=== PATIENT | male | born 1965 | race Caucasian/White ===

== ENCOUNTER 2024-10-31 10:05 | Outpatient (AMB) | payer MEDICARE, MEDICAID, SELFPAY ==
--- NOTE | 2024-10-31 10:11 | MHC.PC.OV ---
Vital Signs 10/31/24 10:21 Height 5 ft 6.54 in Weight 141 lb 8 oz BMI 22.5 BP 138/88 Blood Pressure Location Lt brachial Position Sitting Pulse 96 Pulse Source Pulse Oximeter Temp 97.1 F Temp Source Temporal Artery Scan Pulse Oximetry (%) 97 Oxygen Delivery Method Room Air Intake Visit Reasons: New patient Intake Note: Patient is a new patient here to establish care for HTN, DM, Cholestrol. Transferring care from Dr Ezekiel England. Medical records Have been requested and Have not received. Child Daycare Worker Required: No Maintenance Controller: Not Required per policy Accompanied by: Self / Same As Patient Allergies lisinopril Adverse Reaction (Unknown, Verified 11/01/24 08:23) Cough Medication List - Last Reconciled 11/01/24 by JONATHON Hernandez albuterol sulfate 90 mcg/actuation 2 puffs inhalation Q4-6H PRN atorvastatin 10 mg PO DAILY chlorthalidone 25 mg PO DAILY empagliflozin-metformin 12.5-1,000 mg (Synjardy) 1 tab PO BID losartan 25 mg PO DAILY meloxicam 15 mg PO DAILY metoprolol succinate ER 25 mg PO DAILY tadalafil (Cialis) 20 mg PO DAILY PRN Tobacco use date assessed: 10/31/24 Dental Screening Dental Screen Date: 10/31/24 Did you have a dental visit in the last 12 months?: Yes Did you have a dental problem in the last 6 months where you did not have access to dental care?: No Was dental information given to patient?: Patient has dentist HPI New patient HPI Details Previous PCP: In [place] Last visit: Last PE: February 2024 Specialist: electrician sound (everything was normal- report he was feeling heart palpitations). OBGYN: n/a Past medical history: DM, HTN, Medications: Family HX:father dm, mother arthritis, Problem: Reports that he does not take his blood medication every day, but he monitors his blood pressure frequently last reading 127/73 81 The patient reports that he has arthritis in both shoulders. He had surgery in right shoulder 2015 in [place] reports that he had blood work done 6 months The patient is a 58-year-old male who was [facility] Reports that he used to live here in [place] but moved back to [place] to take care of his mom and dad Reports that they both so now [place] the states and need to reestablish care The patient reports that he gets intermittent shortness of breath that is random Reports that he gets it sometimes with exertion and sometime just sitting there He denies chest pain or dizziness. Reports that he is not sure if it is due to abuse on his body because he used to smoke for many years Reports that he quit smoking 20 years ago. 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 The patient is requesting Cialis 20 mg, reports that he took Viagra before and that gave him headache but the Cialis 20 mg work well for him Patient reports bilateral shoulder arthritis. Reports that he had surgery on the right shoulder in [place] before going to [place] Reports that every once in a while his left shoulder becomes stiff and painful and he has to use his right arm to mobilize it Reports that he has a physical around February or March last year in [place] We will order labs and have the patient return in a month for follow-up for hypertension and diabetes The patient reports that he sees the dentist at [facility] in [place] and he also had a recent eye exam [facility] Medical History Arthritis HTN (hypertension) Diabetes mellitus Smoking history Surgical History History of arthroplasty of right shoulder Family History (Updated 11/01/24 @ 21:40 by JONATHON Hernandez) Father No problems noted. Mother Arthritis Other Diabetes mellitus Social History Housing: Apartment Alcohol intake: never Patient Tobacco Use Status: Former Tobacco user e-Cigarette/Vaping Use: Never Used Second Hand Smoke Exposure: Yes service: No Current occupational status: retired Cognitive needs: No Hearing needs: No Vision needs: Yes (Glasses) Questionnaire PHQ-9 Over the last 2 weeks, how often have you been bothered by any of the following problems? 1. Little interest or pleasure in doing things: not at all 2. Feeling down, depressed, or hopeless: not at all 3. Trouble falling or staying asleep, or sleeping too much: not at all 4. Feeling tired or having little energy: not at all 5. Poor appetite or overeating: not at all 6. Feeling bad about yourself - or that you are a failure or have let yourself or your family down: not at all 7. Trouble concentrating on things, such as reading the newspaper or watching television: not at all 8. Moving or speaking so slowly that other people could have noticed. Or the opposite - being so fidgety or restless that you have been moving around a lot more than usual: not at all 9. Thoughts that you would be better off or of hurting yourself in some way: not at all Total score: 0 Depression Screening Interpretation: Negative Depression Screening Done: Yes 76402 - PHQ-9 Billing: Yes Source: Developed by Drs. Hardik Epps, Caryn Pham, Raghu Fung and colleagues, with an educational moustapha from [employer]. Thrive Questionnaire Date Thrive assessed: 10/31/24 I am a: Patient What is your living situation today?: I have a steady place to live Within the past 12 months, did the food you bought not last and you didn't have the money to get more?: Never true Within the past 12 months, did you worry whether your food would run out before you got money to buy more?: Never true Do you have trouble paying for medicines?: No Do you have trouble getting transportation to medical appointments?: No Do you have trouble paying your heating and electricity bill?: No Do you have trouble taking care of your child, family member or friend?: No Do you have trouble with day-to-day activities such as bathing, preparing meals, shopping, managing finances, etc.?: No Are you currently unemployed and looking for a job?: No Are you interested in more education?: No Please select the resources that you would like help with: None Currently or been in a relationship where the following occur: No concerns reported THRIVE Score: 0 AUDIT C Alcohol Use Questionnaire (AUDIT-C) 1. How often do you have a drink containing alcohol?: Never Total Score: 0 ISAIAH-7 AMB Questionnaire ISAIAH-7 Date ISAIAH - 7 assessed: 10/31/24 Feeling nervous, anxious, or on edge: 0 = Not at all Not being able to stop or control worryin = Not at all Worrying too much about different things: 0 = Not at all Trouble relaxin = Not at all Being so restless that it is hard to sit still: 0 = Not at all Becoming easily annoyed or irritable: 0 = Not at all Feeling afraid as if something awful might happen: 0 = Not at all Total ISAIAH-7 score (0-4 normal; 5-9 mild; 10-14 moderate; 15-21 severe): 0 Source: Developed by Drs. Hardik Epps, Caryn Pham, Raghu Fung and colleagues, with an educational moustapha from [employer]. ISAIAH-7 Assessment Billing ISAIAH-7 Assessment Tool: ISAIAH-7 Assessment 71845 Review of Systems Const Details: Denies chills, Denies fatigue, Denies fever(s), Denies headache(s) and Denies weakness HEENT Denies change in vision, Denies dizziness, Denies headache(s), Denies hearing loss, Denies nasal congestion, Denies sinus pain, Denies sinus pressure and Denies sore throat Card Denies chest pain, Denies lightheadedness, +intermittent sob without or with exertion and Denies other (palpitations) Resp Denies cough, +intermittent sob without or with exertion, and Denies wheezing GI Denies abdominal pain, Denies melena, Denies hematochezia, Denies change in bowel habits, +dyspepsia intermittently only with hot coffee and Denies nausea Denies hematuria and Denies dysuria Musc Denies abnormal gait, Denies myalgias, +arthralgias (left shoulder chronic), Denies numbness and Denies tingling Skin/Breast Denies rash, Denies unusual bruising and Denies wounds Neuro Denies abnormal gait, Denies dizziness, Denies headache(s), Denies memory loss, Denies numbness, Denies Sensory deficit (Neuro), Denies tingling and Denies weakness Psych Denies anxiety, Denies depression and Denies memory loss Endo Denies cold intolerance, Denies fatigue, Denies heat intolerance, Denies polydipsia and Denies polyuria Bhupinder/Lymph Denies easy bleeding and Denies easy bruising Aller/Immun Denies wheezing Physical exam (Primary Care) Vital Signs: Last Vital Signs Temp 97.1 F 10/31/24 10:21 Pulse 96 10/31/24 10:21 BP 138/88 10/31/24 10:21 Pulse Ox 97 10/31/24 10:21 Oxygen Delivery Method Room Air 10/31/24 10:21 BMI result Body Mass Index 22.5 Tobacco/Smoking Status: Tobacco use Status Tobacco use date assessed 10/31/24 10/31/24 10:13 Patient Tobacco Use Status Former Tobacco user 10/31/24 10:36 e-Cigarette/Vaping Use Never Used 10/31/24 10:13 PHQ-9: PHQ-9 Score PHQ-9: Total score 0 11/01/24 08:25 Depression Screening Interpretation: Negative Thrive Assessment: Date of Thrive Assessment Date Thrive assessed 10/31/24 10/31/24 10:13 Currently or been in a relationship where the following occur: No concerns reported Const Other: General: no acute distress, well developed, alert and awake Nutritional Appearance: well nourished Orientation/consciousness: patient oriented x3 HENMT Head: Yes normocephalic and Yes atraumatic Ears: hearing grossly normal bilaterally and TM's normal bilaterally General nose exam: Normal external nose present and Normal nares present Mouth: Normal oral and palatal mucosa present and moist mucous membranes Eyes Pupils: Equal, round and reactive pupils present and Pupil accommodation reflex normal EOM: EOMs intact bilaterally Neck Neck: Yes normal visual inspection, Yes no lymphadenopathy and Yes trachea midline Thyroid: Thyroid normal Resp Effort & Inspection: normal respiratory effort Auscultation: clear to auscultation bilaterally Cardio Rate: regular rate Rhythm: regular rhythm Heart sounds: S1 normal heart sound present, S2 normal heart sound present, no gallops, no murmurs and no rubs GI Palpation (GI): Abdomen is soft and nontender to palpation Auscultation: normal bowel sounds General: Yes no CVA tenderness Back/Spine/Pelvis Back: no CVA tenderness Cervical Spine: cervical ROM normal and No Cervical spine tenderness Thoracic/Lumbar Spine: No lumbar tenderness with palpation Other: Left shoulder positive range of motion with pain, no erythema no edema Skin General: warm and dry. Normal skin color. Normal skin turgor Other: left shoulder skin color, skin tag Nails: normal Neuro General: patient oriented x3, gait normal Cranial nerves: Yes Equal, round and reactive pupils present Cognition (Neuro): normal cognition Gait exam (Neuro): Normal gait present Extrem General: Yes normal to inspection, No edema and No calf tenderness Psych Appearance: grossly normal Affect: normal affect Attitude: cooperative Thought process: Normal thought process present Coding Level of Care Code New Pt Level 4 (51362) Diagnoses Type 2 diabetes mellitus with other specified complication, without long-term current use of insulin E11.69 Diabetes mellitus type: type 2 Diabetes mellitus skilled nursing insulin use: without skilled nursing use Diabetes mellitus complication status: with other specified complication Hypertension, unspecified type I10 Hypertension type: unspecified SOB (shortness of breath) R06.02 Skin tag L91.8 Erectile dysfunction, unspecified erectile dysfunction type N52.9 Erectile dysfunction type: unspecified Chronic left shoulder pain M25.512; G89.29 Chronicity: chronic Additional Codes PHQ-9 - 49889 - PHQ-9 Billing: Yes ([id number]) ISAIAH-7 Assessment Billing - ISAIAH-7 Assessment Tool: ISAIAH-7 Assessment 25348 ([id number]) Time Spent (min) 38 Assessment & Plan Assessment & Plan (1) Diabetes mellitus: Code(s): E11.9 - Type 2 diabetes mellitus without complications Category: Medical Qualifiers: Diabetes mellitus type: type 2 Diabetes mellitus skilled nursing insulin use: without watermelon harvesting supervisor use Diabetes mellitus complication status: with other specified complication Qualified Code(s): E11.69 - Type 2 diabetes mellitus with other specified complication Plan: Reinforced lowest sugar/carbohydrate and activity as tolerated Continue Synjardy 12.5-1000 mg b.i.d. Monitor blood sugar frequently (2) HTN (hypertension): Code(s): I10 - Essential (primary) hypertension Category: Medical Qualifiers: Hypertension type: unspecified Qualified Code(s): I10 - Essential (primary) hypertension Plan: Reinforced low-sodium diet Continue chlorthalidone 25 mg daily, losartan 25 mg daily, metoprolol succinate ER 25 mg daily (3) SOB (shortness of breath): Code(s): R06.02 - Shortness of breath Category: Medical Plan: Albuterol sulfate 90 mcg/actuation 2 puffs inhalation Q 4-6 hours p.r.n. (4) Skin tag: Code(s): L91.8 - Other hypertrophic disorders of the skin Category: Medical Plan: Refer to dermatology (5) Erectile dysfunction: Code(s): N52.9 - Male erectile dysfunction, unspecified Category: Medical Qualifiers: Erectile dysfunction type: unspecified Qualified Code(s): N52.9 - Male erectile dysfunction, unspecified Plan: Cialis 20 mg daily p.r.n. (6) Left shoulder pain: Code(s): M25.512 - Pain in left shoulder Category: Medical Qualifiers: Chronicity: chronic Qualified Code(s): M25.512 - Pain in left shoulder; G89.29 - Other chronic pain Plan: Patient reports bilateral shoulder arthritis. Reports that he had surgery on the right shoulder in [place] before going to [place] Meloxicam 15 mg daily ordered Orders: Orders Complete Blood Count Auto Diff Today E11.9 - Type 2 diabetes mellitus without complications, I10 - Essential (primary) hypertension, R06.02 - Shortness of breath Comprehensive [place]. Panel Fast Today E11.9 - Type 2 diabetes mellitus without complications, I10 - Essential (primary) hypertension, R06.02 - Shortness of breath Lipid Panel Today E11.9 - Type 2 diabetes mellitus without complications, I10 - Essential (primary) hypertension, R06.02 - Shortness of breath Glucose Fasting Today E11.9 - Type 2 diabetes mellitus without complications, I10 - Essential (primary) hypertension, R06.02 - Shortness of breath Vitamin D 25-OH Total Today E11.9 - Type 2 diabetes mellitus without complications, I10 - Essential (primary) hypertension, R06.02 - Shortness of breath TSH reflex Free T4 Today E11.9 - Type 2 diabetes mellitus without complications, I10 - Essential (primary) hypertension, R06.02 - Shortness of breath Hemoglobin A1c Today E11.9 - Type 2 diabetes mellitus without complications, I10 - Essential (primary) hypertension, R06.02 - Shortness of breath UA CC w/rflx Micro + Cult Today E11.9 - Type 2 diabetes mellitus without complications, I10 - Essential (primary) hypertension, R06.02 - Shortness of breath Referrals Pulmonology Referral R06.02 - Shortness of breath, Z87.891 - Personal history of nicotine dependence Dermatology Referral L91.8 - Other hypertrophic disorders of the skin Medications: New blood-glucose meter ([employer] Verio Flex Start kit) As directed check blood sugar TID 1 ea 1RF E11.69 - Type 2 diabetes mellitus with other specified complication lancets (OneTouch UltraSoft 2 Lancet) As directed check blood sugar TID 200 ea 2RF E11.69 - Type 2 diabetes mellitus with other specified complication blood sugar diagnostic (OneTouch Ultra Test strips) As directed check blood sugar TID 100 ea 2RF E11.69 - Type 2 diabetes mellitus with other specified complication meloxicam 15 mg PO DAILY 30 tabs 3RF albuterol sulfate 90 mcg/actuation 2 puffs inhalation Q4-6H PRN 8.5 grams 0RF shortness of breath or wheezing R06.02 - Shortness of breath tadalafil (Cialis) administer approximately 30min before sexual activity; do not use more than 1 dose per 24hrs 20 mg PO DAILY PRN 30 tabs 1RF sexual activity
[2024-10-31 10:21] VITALS: BP 138/88; PULSE 96; TEMP 36.2; O2SAT 97; BMI 22.5
== END 2024-10-31 11:15 | disposition home or self-care (01) ==
PROVIDERS: PCP Internal Medicine
DX: E11.69 Type 2 diabetes mellitus with other specified complication (principal); I10 Essential (primary) hypertension; R06.02 Shortness of breath; L91.8 Other hypertrophic disorders of the skin; N52.9 Male erectile dysfunction, unspecified; M25.512 Pain in left shoulder; G89.29 Other chronic pain

== ENCOUNTER → 2024-10-31 10:05 | Outpatient (BNVA) | payer MEDICARE, MEDICAID, SELFPAY | PROVIDERS: PCP Internal Medicine | DX: E11.69 Type 2 diabetes mellitus with other specified complication (principal); I10 Essential (primary) hypertension; R06.02 Shortness of breath; L91.8 Other hypertrophic disorders of the skin; N52.9 Male erectile dysfunction, unspecified; M25.512 Pain in left shoulder; G89.29 Other chronic pain | CPT/HCPCS: 96127; 99202 ==

== ENCOUNTER 2024-11-01 07:09 | Outpatient (REF) | payer MEDICARE, MEDICAID, SELFPAY ==
[2024-11-01 07:19] LABS: MANUAL DIFF FLAG NO
[2024-11-01 07:47] LABS: Basophils Absolute Auto 0.1 X10*3/uL (0.0-0.2); Basophils Percent Auto 0.8 % (0-2); Eosinophils Absolute Auto 0.3 X10*3/uL (0.0-0.4); Eosinophils Percent Auto 4.4 % (0-4); Hematocrit 47.1 % (42.0-52.0); Hemoglobin 15.6 g/dl (14.0-18.0); Imm Gran Abs Auto 0.03 X10*3/uL (0.00-0.03); Imm Gran Pct Auto 0.4 % (0.0-0.4); Lymphocytes Percent Auto 26.4 % (20-40); Mean Corpuscular HGB Conc 33.1 g/dl (31.0-36.0); Mean Corpuscular Hemoglobin 27.7 pg (27.0-33.0); Mean Corpuscular Volume 83.7 fL (80.0-98.0); Mean Platelet Volume 9.8 fL (9.4-12.4); Monocytes Absolute Auto 0.5 X10*3/uL (0.1-1.2); Monocytes Percent Auto 7.2 % (2-11); Neutrophils Absolute Auto 4.6 x10*3/uL (2.0-8.3); Neutrophils Percent Auto 60.8 % (45-73); Platelet Count 201 X10*3/uL (160-400); Red Blood Count 5.63 X10*6/uL (4.60-5.80); Red Cell Distribution Width 13.7 % (11.0-16.0); White Blood Count 7.5 X10*3/uL (4.8-10.8)
[2024-11-01 08:12] LABS: Estimated Average Glucose 146 mg/dL; Hemoglobin A1C 202.7293 umol/L; Hemoglobin A1c % 6.7 % (<6.0); Total Hemoglobin (HGBA1C) 4044.0666 umol/L
[2024-11-01 08:13] LABS: Appearance Urine Clear; Color Urine Yellow; Glucose Urine UA >=1000 mg/dL (Negative); Leukocyte Esterase Urine Negative (Negative); Nitrite Urine Negative (Negative); PH 5.5 (5.0-9.0); Specific Gravity - Urine >= 1.030 (1.005-1.025); UMIC TRIGGER UACC YES; Urine Blood Moderate (2+) (Negative); Urine Ketones Negative (Negative); Urine Protein Negative (Neg-Trace)
[2024-11-01 08:18] LABS: Bacteria Urine None Seen (None Seen); Hyaline Casts Urine 0-2 /LPF (0-2); RBC Urine 0-2 /HPF (0-2); Squamous Epithelial Cell Urine 0-2 /HPF (0-2); WBC Urine 0-5 /HPF (0-5)
[2024-11-01 08:24] LABS: Alanine Aminotransferase 23 U/L (0-40); Albumin Level 4.6 g/dL (3.5-5.0); Alkaline Phosphatase 92 U/L (39-117); Anion Gap 13 (12-20); Aspartate Amino Transferase 23 U/L (5-37); Bilirubin Total 0.4 mg/dL (0.0-1.0); Blood Urea Nitrogen 22 mg/dL (9-16); Calcium 9.3 mg/dL (8.4-10.2); Carbon Dioxide 24 mmol/L (22-29); Chloride 108 mmol/L (96-108); Cholesterol 100 mg/dL (<200); Estimated Glomerular Filt Rate > 60; Glucose Fasting 137 mg/dL (60-99); HDL Cholesterol 34 mg/dL (>40); LDL Cholesterol Calculated 55 mg/dL (<100); Potassium 4.1 mmol/L (3.3-5.1); Sodium 141 mmol/L (135-145); Total Protein 7.7 g/dL (6.5-8.0); Triglycerides 58 mg/dL (<150)
[2024-11-01 08:42] LABS: TSH reflex Free T4 0.97 uIU/mL (0.32-4.0); Vitamin D 25-OH Total 37.1 ng/mL (>30)
== END 2024-11-01 07:10 | disposition home or self-care (01) ==
LOC: HO.LAB 07:09
DX: I10 Essential (primary) hypertension (principal); E11.9 Type 2 diabetes mellitus without complications; R06.02 Shortness of breath
CPT/HCPCS: 36415; 80053; 80061; 81001; 81003; 82306; 83036; 84443; 85025

== ENCOUNTER 2024-11-04 07:40 | Outpatient (REF) | payer MEDICARE, MEDICAID, SELFPAY ==
[2024-11-04 08:04] LABS: Urine Cytology See Pathology rpt
[2024-11-04 08:07] LABS: Appearance Urine Clear; Color Urine Yellow; Glucose Urine UA >=1000 mg/dL (Negative); Leukocyte Esterase Urine Negative (Negative); Nitrite Urine Negative (Negative); Specific Gravity - Urine >= 1.030 (1.005-1.025); UMIC TRIGGER UACC YES; Urine Blood Small (1+) (Negative); Urine Ketones Negative (Negative); Urine Protein Negative (Neg-Trace)
[2024-11-04 08:15] LABS: Bacteria Urine None Seen (None Seen); Hyaline Casts Urine 0-2 /LPF (0-2); RBC Urine 0-2 /HPF (0-2); Squamous Epithelial Cell Urine 0-2 /HPF (0-2); WBC Urine 0-5 /HPF (0-5)
== END 2024-11-04 07:41 | disposition home or self-care (01) ==
LOC: HO.LAB 07:40
PROVIDERS: PCP Internal Medicine
DX: R31.9 Hematuria, unspecified (principal)
CPT/HCPCS: 81001; 88112

== ENCOUNTER 2024-11-11 14:31 | Outpatient (AMB) | payer MEDICARE, MEDICAID, SELFPAY ==
[2024-11-11 15:10] VITALS: BP 132/70; PULSE 80; O2SAT 97; BMI 22.9
--- NOTE | 2024-11-11 15:10 | A.OFFVIS_ITS ---
Vital Signs 11/11/24 15:10 Height 5 ft 7 in Weight 146 lb BMI 22.9 BP 132/70 Blood Pressure Location Lt brachial Position Sitting Pulse 80 Pulse Source Pulse Oximeter Pulse Oximetry (%) 97 Oxygen Delivery Method Room Air Intake Visit Reasons: shortness of breath Graphic Arts Instructor Required: No Conveyor Console Operator: Conveyor Console Operator offered & declined Accompanied by: Self / Same As Patient Allergies lisinopril Adverse Reaction (Unknown, Verified 11/11/24 15:17) Cough Medication List - Last Reconciled 11/11/24 by Minerva Grimes LPN albuterol sulfate 90 mcg/actuation 2 puffs inhalation Q4-6H PRN atorvastatin 10 mg PO DAILY [Blood pressure monitor As directed] blood sugar diagnostic ([employer] Ultra Test strips) As directed check blood sugar once a day blood-glucose meter ([employer] Verio Flex Start kit) As directed check blood sugar once chlorthalidone 25 mg PO DAILY empagliflozin-metformin 12.5-1,000 mg (Synjardy) 1 tab PO BID lancets ([employer] UltraSoft 2 Lancet) As directed check blood sugar once a day losartan 25 mg PO DAILY meloxicam 15 mg PO DAILY metoprolol succinate ER 25 mg PO DAILY tadalafil (Cialis) 20 mg PO DAILY PRN HPI HPI shortness of breath: Details: Paras is a pleasant 59 year old male, former smoker, quit 21 years ago with 30+ pyh, with underlying HTN and DMII. He was referred by PCP for pulmonary evaluation. He reports occasional dyspnea on exertion with associated chest tightness, wheezing and dry cough. He has an albuterol MDI however uses infrequently as he feels suboptimal relief and questions proper use. He denies h/o asthma. He denies seasonal allergies. He reports two sisters with asthma. 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 ON LICENSE OF [facility] Medical History Arthritis HTN (hypertension) Diabetes mellitus Smoking history Surgical History History of arthroplasty of right shoulder Family History (Updated 11/01/24 @ 21:40 by JONATHON Hernandez) Father No problems noted. Mother Arthritis Other Diabetes mellitus Social History Housing: Apartment Alcohol intake: never Patient Tobacco Use Status: Former Tobacco user e-Cigarette/Vaping Use: Never Used Second Hand Smoke Exposure: Yes service: No Current occupational status: retired Cognitive needs: No Hearing needs: No Vision needs: Yes (Glasses) Review of Systems Const Denies chills, Denies excessive sweating, Denies fever(s), Denies headache(s) and Denies night sweats Eyes Denies dry eyes, Denies irritation and Denies itchy eyes ENT Reports Normal hearing present, Denies headache(s), Denies nasal congestion, Denies nasal discharge, Denies post nasal drip and Denies sore throat Card Denies chest pain, Denies chest pain at rest, Denies chest pain with activity, Denies claudication, Denies leg edema, Denies orthopnea and Denies paroxysmal nocturnal dyspnea Resp Denies chest congestion, Denies excessive phlegm production, Denies pain on inspiration, Denies pain with cough and Denies stridor Musc Denies myalgias Neuro Reports Normal hearing present and Denies headache(s) Endo Denies excessive sweating Bhupinder/Lymph Denies lymphadenopathy Aller/Immun Denies itchy eyes and Denies seasonal rhinorrhea Physical Exam Vital Signs: Last Vital Signs Pulse 80 11/11/24 15:10 BP 132/70 11/11/24 15:10 Pulse Ox 97 11/11/24 15:10 Oxygen Delivery Method Room Air 11/11/24 15:10 BMI result Body Mass Index 22.9 Const General: cooperative, healthy appearing, comfortable, no acute distress, well developed and alert Orientation/consciousness: patient oriented x3 Limitations: no limitations HEENT Head: Yes normal to inspection, Yes normocephalic and Yes atraumatic Ears: hearing grossly normal bilaterally and external ears normal Eyes General: appearance normal, both eyes and all related structures Eyelids: Yes eyelids normal Sclerae: sclerae normal EOM: EOMs intact bilaterally Neck Neck: Yes normal visual inspection and Yes no lymphadenopathy Lymphatic: no lymphadenopathy noted Chest Chest palpation & inspection: normal inspection of the chest Resp Effort & Inspection: normal respiratory effort, able to speak in complete sentences, no audible wheezes, no cough, no stridor, not tachypneic, no tripod positioning and no use of accessory muscles Auscultation: clear to auscultation bilaterally Cardio Jugular venous distension: no JVD Rate: regular rate Rhythm: regular rhythm Skin Other: warm, dry General skin exam: no rashes or lesions noted Neuro General: patient oriented x3 Cranial nerves: Yes Normal hearing present Cognition (Neuro): normal cognition Gait exam (Neuro): Normal gait present Extrem General: Yes normal to inspection, Yes capillary refill normal, Yes no clubbing, cyanosis or edema and Yes no pedal edema Psych Appearance: grossly normal and well kempt Speech and movement: Normal speech and movement present and Clear speech present Affect: normal affect Attitude: cooperative Thought process: Normal thought process present Thought content: Normal thought content present Insight: Good insight present (Psych) Judgement: Good judgement present (Psych) Assessment & Plan Assessment & Plan (1) SOB (shortness of breath): Code(s): R06.02 - Shortness of breath Category: Medical (2) Personal history of tobacco use: Code(s): Z87.891 - Personal history of nicotine dependence Category: Social Hx (3) Asbestos exposure: Code(s): Z77.090 - Contact with and (suspected) exposure to asbestos Category: Medical (4) Cough: Code(s): R05.9 - Cough, unspecified Category: Medical Plan Paras presents for pulmonary evaluation for ongoing respiratory symptoms. Will send for PFT to assess obstructive defect given smoking history. Reeducated patient on proper use of albuterol MDI. Encouraged patient to use when experiencing respiratory symptoms. Will send for CXR today and chest CT in the future given asbestos exposure. All questions were answered and patient is in agreement of plan. Will follow up in 6-8 weeks or sooner if needed. Orders: Orders CT chest wo IV con Today Z77.090 - Contact with and (suspected) exposure to asbestos PFT pulmonary function test Today R06.02 - Shortness of breath XR chest 2V Today R06.02 - Shortness of breath Coding Level of Care Code New Pt Level 4 (39005) Diagnoses SOB (shortness of breath) R06.02 Personal history of tobacco use Z87.891 Asbestos exposure Z77.090 Cough R05.9
== END 2024-11-11 15:36 | disposition home or self-care (01) ==
PROVIDERS: Visit Provider Nurse Practitioner Family
DX: R06.02 Shortness of breath (principal); Z87.891 Personal history of nicotine dependence; Z77.090 Contact with and (suspected) exposure to asbestos; R05.9 Cough, unspecified
CPT/HCPCS: 99204

== ENCOUNTER → 2024-11-11 14:31 | Outpatient (BNVA) | payer MEDICARE, MEDICAID, SELFPAY | PROVIDERS: Visit Provider Nurse Practitioner Family | DX: R06.02 Shortness of breath (principal); R05.9 Cough, unspecified; Z87.891 Personal history of nicotine dependence; Z77.090 Contact with and (suspected) exposure to asbestos | CPT/HCPCS: 99202 ==

== ENCOUNTER 2025-01-02 08:36 | Outpatient (REF) | payer MEDICARE, MEDICAID, SELFPAY ==
--- NOTE | ~2025-01-02 | XR_ITS ---
CLINICAL HISTORY: M25.512 - Pain in left shoulder Left shoulder five views Comparison: None Findings: No acute fracture or dislocation identified. Degenerative change acromioclavicular joint. No radiopaque foreign body noted. Impression: No acute bony abnormality This document has been electronically signed by: Harry George MD on 01/03/2025 19:35:09
--- NOTE | ~2025-01-02 | XR_ITS ---
CLINICAL HISTORY: M25.562 - Pain in left knee Left knee three views Comparison: None Findings: No acute fracture or dislocation noted. No significant joint effusion identified. No soft tissue foreign body. Impression: No acute bony abnormality This document has been electronically signed by: Harry George MD on 01/03/2025 19:29:10
[2025-01-02 11:21] LABS: Syphilis Screen Nonreactive (Nonreactive)
[2025-01-02 11:22] LABS: HIV AB/AG Nonreactive (Nonreactive); HIV Num 1 0.06 S/CO (0.00-0.99)
[2025-01-03 09:06] LABS: CT PCR NOT DETECTED (Not Detect.); NG PCR NOT DETECTED (Not Detect.)
== END 2025-01-02 08:37 | disposition home or self-care (01) ==
LOC: HO.XRAY 08:36
DX: M25.562 Pain in left knee (principal); M25.512 Pain in left shoulder; G89.29 Other chronic pain; N52.9 Male erectile dysfunction, unspecified; E11.69 Type 2 diabetes mellitus with other specified complication; I10 Essential (primary) hypertension; Z11.3 Encounter for screening for infections with a predominantly sexual mode of transmission; Z79.899 Other long term (current) drug therapy
CPT/HCPCS: 36415; 73030; 73562; 86780; 87389; 87491; 87591; 99212

== ENCOUNTER 2025-01-02 08:36 | Outpatient (AMB) | payer MEDICARE, MEDICAID, SELFPAY ==
--- NOTE | 2025-01-02 08:52 | A.OFFPC_ITS ---
Vital Signs 01/02/25 08:54 01/02/25 09:05 Height 5 ft 7 in Weight 146 lb BMI 22.9 BP 100/70 118/76 Blood Pressure Location Lt brachial Position Sitting Pulse 74 Pulse Source Pulse Oximeter Temp 97.3 F Temp Source Temporal Artery Scan Pulse Oximetry (%) 97 Oxygen Delivery Method Room Air Intake Visit Reasons: 1 month follow up Intake Note: Patient is here to follow up on DM, HTN, ED. 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: Not Required per policy Accompanied by: Self / Same As Patient Allergies lisinopril Adverse Reaction (Unknown, Verified 01/02/25 09:36) Cough Medication List - Last Reconciled 01/02/25 by JONATHON Hernandez albuterol sulfate 90 mcg/actuation 2 puffs inhalation Q4-6H PRN atorvastatin 10 mg PO DAILY [Blood pressure monitor As directed] blood sugar diagnostic (iStoryTimeTouch Ultra Test strips) As directed check blood sugar once a day blood-glucose meter (Gimadouch Verio Flex Start kit) As directed check blood sugar once chlorthalidone 25 mg PO DAILY empagliflozin-metformin 12.5-1,000 mg (Synjardy) 1 tab PO BID lancets (iStoryTimeTouch UltraSoft 2 Lancet) As directed check blood sugar once a day losartan 25 mg PO DAILY meloxicam 15 mg PO DAILY metoprolol succinate ER 25 mg PO DAILY tadalafil (Cialis) 20 mg PO DAILY PRN Tobacco use date assessed: 01/02/25 Dental Screening Dental Screen Date: 10/31/24 HPI 1 month follow up HPI Details The patient is a 59-year-old male with PMH of HTN, DM, erectile dysfunction presenting for f/u of these conditons. The patient is complaining of ongoing left shoulder pain and left knee pain. He has been experiencing shoulder pain that intensifies with movement and is aggravated by weather changes, sometimes causing significant discomfort. The shoulder pain bothers him particularly because he favors sleeping on that side. The patient was prescribed Meloxicam 15 mg on previous visit that he has been using sparingly Bilateral knee pain is chronic, existing for nearly 50 years, but it has become more pronounced over time, with the left knee being more affected than the right. The patient monitors his hypertension and diabetes regularly, noting a home-recorded blood pressure of 140 over an unspecified number and occasional elevated postprandial blood sugar levels around 188 mg/dL. His diabetes appears controlled with a recent hemoglobin A1c of 6.7%. Dietary patterns include frequent egg consumption, with discussions directed towards low cholesterol intake. [facility] Medical History Arthritis HTN (hypertension) Diabetes mellitus Smoking history Surgical History History of arthroplasty of right shoulder Family History Father No problems noted. Mother Arthritis Other Diabetes mellitus Social History Housing: Apartment Alcohol intake: never Patient Tobacco Use Status: Former Tobacco user e-Cigarette/Vaping Use: Never Used Second Hand Smoke Exposure: Yes service: No Current occupational status: retired Cognitive needs: No Hearing needs: No Vision needs: Yes (Glasses) Questionnaire Thrive Questionnaire Date Thrive assessed: 10/31/24 ISAIAH-7 AMB Questionnaire ISAAIH-7 Date ISAIAH - 7 assessed: 10/31/24 Source: Developed by Drs. Hardik Epps, Caryn Pham, Raghu Fung and colleagues, with an educational moustapha from [employer]. Review of Systems Const Details: - Cardiovascular: Reports monitoring blood pressure and occasional elevations. - Musculoskeletal: Reports left shoulder pain with movement; reports chronic left knee pain. - Endocrine: Reports diagnosis of diabetes, checks blood sugar regularly. Denies headache(s) Eyes Denies loss of vision ENT Denies vertigo, Denies dizziness, Denies headache(s) and Denies sore throat Card Denies chest pain, Denies leg edema and Denies lightheadedness Resp Denies cough, Denies hemoptysis and Denies wheezing GI Denies abdominal pain, Denies melena, Denies constipation, Denies diarrhea and Denies vomiting Denies dysuria, Denies urinary frequency and Denies urinary urgency Musc Reports arthralgias (left shoulder and left knee, right knee as well (mild)), Denies joint swelling, Denies numbness, Reports stiffness (left shoulder) and Denies tingling Neuro Denies Abnormal speech present, Denies behavioral changes, Denies vertigo, Denies dizziness, Denies headache(s), Denies loss of vision, Denies memory loss, Denies numbness and Denies tingling Psych Denies anxiety, Denies behavioral changes, Denies depression, Denies memory loss and Denies panic attacks Bhupinder/Lymph Denies easy bleeding and Denies easy bruising Aller/Immun Denies wheezing Physical exam (Primary Care) Vital Signs: Last Vital Signs Temp 97.3 F 01/02/25 08:54 Pulse 74 01/02/25 08:54 BP 100/70 01/02/25 08:54 Pulse Ox 97 01/02/25 08:54 Oxygen Delivery Method Room Air 01/02/25 08:54 BMI result Body Mass Index 22.9 Tobacco/Smoking Status: Tobacco use Status Tobacco use date assessed 01/02/25 01/02/25 08:59 Patient Tobacco Use Status Former Tobacco user 01/02/25 08:53 e-Cigarette/Vaping Use Never Used 01/02/25 08:53 Thrive Assessment: Date of Thrive Assessment Date Thrive assessed 10/31/24 01/02/25 08:53 Const General: healthy appearing, no acute distress, alert and awake Nutritional Appearance: well nourished Orientation/consciousness: oriented to person, oriented to place and oriented to time HENMT Ears: external ears normal General nose exam: Normal external nose present Eyes Conjunctivae: conjunctivae normal Sclerae: sclerae normal Pupils: Equal, round and reactive pupils present Neck Neck: Yes no lymphadenopathy and Yes no JVD Thyroid: Thyroid normal Carotids: no bruits Resp Effort & Inspection: normal respiratory effort and not tachypneic Auscultation: no crackles, no rales, no rhonchi and no wheezes Cardio Rate: regular rate Rhythm: regular rhythm Heart sounds: no murmurs and normal S1 and S2 GI Palpation (GI): Soft to palpation, nontender, no hepatomegaly and no splenomegaly Auscultation: normal bowel sounds Skin General skin exam: no rashes or lesions noted and dry skin Neuro General: oriented to person, oriented to place and oriented to time Cranial nerves: Yes Equal, round and reactive pupils present Speech: No Abnormal speech present Gait exam (Neuro): Normal gait present Motor exam (neuro): no tremor noted Extrem Right upper extremity: full ROM Left upper extremity: ROM limited (unable to lift arm about head) and no edema Right lower extremity: full ROM and knee Details: no tenderness and no swelling; no edema Left lower extremity: full ROM and knee Details: no tenderness and no swelling; no edema Psych Mental Status: mental status grossly normal Speech and movement: Normal speech and movement present Affect: normal affect Attitude: cooperative Thought process: Normal thought process present Results Reviewed Results Reviewed: Laboratory Tests 11/01/24 11/04/24 07:18 Unknown WBC 7.5 RBC 5.63 Hgb 15.6 Hct 47.1 MCV 83.7 MCH 27.7 RDW 13.7 Plt Count 201 Sodium 141 Potassium 4.1 Chloride 108 Carbon Dioxide 24 BUN 22 H Creatinine 0.76 Estimated GFR > 60 Fasting Glucose 137 H Hemoglobin A1c % 6.7 H Calcium 9.3 Total Bilirubin 0.4 AST 23 ALT 23 Alkaline Phosphatase 92 Total Protein 7.7 Albumin 4.6 Triglycerides 58 Cholesterol 100 LDL Cholesterol, Calc 55 HDL Cholesterol 34 L 25-OH Vitamin D Total 37.1 TSH 0.97 Urine Color Yellow Urine Appearance Clear Urine pH 5.0 Ur Specific [place] >= 1.030 H Urine Protein Negative Urine Glucose (UA) >=1000 H Urine Ketones Negative Urine Blood Small (1+) H Urine Nitrite Negative Ur Leukocyte Esterase Negative Urine RBC 0-2 Urine WBC 0-5 Ur Squamous Epith Cells 0-2 Urine Bacteria None Seen Hyaline Casts 0-2 Coding Level of Care Code Est Pt Level 4 (64810) Diagnoses Screening for STD (sexually transmitted disease) Z11.3 Chronic pain of left knee M25.562; G89.29 Chronicity: chronic Chronic left shoulder pain M25.512; G89.29 Chronicity: chronic Erectile dysfunction, unspecified erectile dysfunction type N52.9 Erectile dysfunction type: unspecified Type 2 diabetes mellitus with other specified complication, without long-term current use of insulin E11.69 Diabetes mellitus type: type 2 Diabetes mellitus longterm insulin use: without longterm use Diabetes mellitus complication status: with other specified complication Hypertension, unspecified type I10 Hypertension type: unspecified Time Spent (min) 41 Assessment & Plan Assessment & Plan (1) Screening for STD (sexually transmitted disease): Code(s): Z11.3 - Encounter for screening for infections with a predominantly sexual mode of transmission Category: Medical (2) Left knee pain: Code(s): M25.562 - Pain in left knee Category: Medical Qualifiers: Chronicity: chronic Qualified Code(s): M25.562 - Pain in left knee; G89.29 - Other chronic pain (3) Left shoulder pain: Code(s): M25.512 - Pain in left shoulder Category: Medical Qualifiers: Chronicity: chronic Qualified Code(s): M25.512 - Pain in left shoulder; G89.29 - Other chronic pain (4) Erectile dysfunction: Code(s): N52.9 - Male erectile dysfunction, unspecified Category: Medical Qualifiers: Erectile dysfunction type: unspecified Qualified Code(s): N52.9 - Male erectile dysfunction, unspecified (5) Diabetes mellitus: Code(s): E11.9 - Type 2 diabetes mellitus without complications Category: Medical Qualifiers: Diabetes mellitus type: type 2 Diabetes mellitus long chain quiller tender insulin use: without long chain quiller tender use Diabetes mellitus complication status: with other specified complication Qualified Code(s): E11.69 - Type 2 diabetes mellitus with other specified complication (6) HTN (hypertension): Code(s): I10 - Essential (primary) hypertension Category: Medical Qualifiers: Hypertension type: unspecified Qualified Code(s): I10 - Essential (primary) hypertension Plan I will continue to monitor the patient's hypertension and diabetes, suggesting dietary modifications to manage hypercholesterolemia. Reinforced low cholesterol diet and activity as tolerated. Patient education covered restrictively eating egg yolks to lower cholesterol levels. The patient reports eating 4-6 boiled eggs/day. Continue atorvastatin 10 daily. Reinforced low salt diet, continue An x-ray for the left shoulder and knee will be ordered, with the follow-up visit planned upon receipt of imaging results. Will consider PT evaluation after obtaining x-ray. Continue modifying activity to maintain shoulder flexibility and guidance on recognizing symptoms that require prompt medical attention. Concerns for worsening shoulder or knee pain will also guide further evaluation and management strategies. STD screening tests were ordered per patient request. Continue Cialis 20 mg daily prn. Continue metoprolol succinate ER 25 mg daily, losartan 25 mg and chlorthalidone 25 mg daily as ordered. Patient was informed and verbally consented to the use of an ambient scribe for clinic note documentation during this visit. Orders: Orders CT NG by PCR Today Z11.3 - Encounter for screening for infections with a predominantly sexual mode of transmission Vitamin D 25-OH Total 3 Months Z00.00 - Encounter for general adult medical examination without abnormal findings UA CC w/rflx Micro + Cult 3 Months Z00.00 - Encounter for general adult medical examination without abnormal findings TSH reflex Free T4 3 Months Z00.00 - Encounter for general adult medical examination without abnormal findings Hemoglobin A1c 3 Months Z00.00 - Encounter for general adult medical examination without abnormal findings XR knee LT 3V Today M25.562 - Pain in left knee HIV Ab/Ag Today Z11.3 - Encounter for screening for infections with a predominantly sexual mode of transmission Syphilis Screen Today Z11.3 - Encounter for screening for infections with a predominantly sexual mode of transmission Complete Blood Count Auto Diff 3 Months Z00.00 - Encounter for general adult medical examination without abnormal findings Comprehensive Roberts. Panel Fast 3 Months Z00.00 - Encounter for general adult medical examination without abnormal findings Lipid Panel 3 Months Z00.00 - Encounter for general adult medical examination without abnormal findings Glucose Fasting 3 Months Z00.00 - Encounter for general adult medical examination without abnormal findings Patient Instructions: - Monitor blood pressure and blood sugar regularly at home. - Limit egg yolk intake and consider omega-3 supplements for cholesterol management. - Follow up for shoulder and knee X-rays and return for results review. - Engage in shoulder mobility exercises as advised different from complete immobilization. - Return promptly if experiencing significant changes in symptoms such as increased pain or new difficulties in mobility.
[2025-01-02 08:54] VITALS: BP 100/70; PULSE 74; TEMP 36.3; O2SAT 97; BMI 22.9
[2025-01-02 09:05] VITALS: BP 118/76
== END 2025-01-02 10:04 | disposition home or self-care (01) ==
LOC: HO.HMCH 08:37
DX: E11.69 Type 2 diabetes mellitus with other specified complication (principal); Z11.3 Encounter for screening for infections with a predominantly sexual mode of transmission; M25.562 Pain in left knee; G89.29 Other chronic pain; M25.512 Pain in left shoulder; N52.9 Male erectile dysfunction, unspecified; I10 Essential (primary) hypertension

== ENCOUNTER → 2025-01-02 10:32 | Outpatient (BNV) | payer MEDICARE, MEDICAID, SELFPAY | PROVIDERS: Visit Provider Radiology Diagnostic Radiology | DX: M25.562 Pain in left knee (principal); M25.512 Pain in left shoulder | CPT/HCPCS: 73030; 73562 ==

== ENCOUNTER 2025-01-03 09:04 | Outpatient (REF) | payer MEDICARE, MEDICAID, SELFPAY ==
--- NOTE | ~2025-01-03 | CT_ITS ---
CLINICAL HISTORY: Z77.090 - Contact with and (suspected) exposure to asbestos CT chest without IV contrast. COMPARISON: None FINDINGS: Visualized thyroid is unremarkable. No supraclavicular or axillary lymphadenopathy. Ascending aorta and main pulmonary artery are normal in caliber. No pericardial effusion. Normal esophagus. No mediastinal lymphadenopathy. No pleural effusion. No consolidation. No pleural plaques. No fibrotic changes. Trachea and central airways are clear. No significant bronchial wall thickening. No bronchiectasis. Visualized portions of the upper abdomen are unremarkable. Flowing marginal osteophytes present throughout the thoracic spine. No acute fracture or suspicious bone lesion. IMPRESSION: 1. No acute findings. No evidence of pulmonary fibrosis or asbestos related pleural disease. This document has been electronically signed by: Jon Barclay MD on 01/04/2025 12:31:35
== END 2025-01-03 09:05 | disposition home or self-care (01) ==
LOC: HO.CT 09:04
PROVIDERS: Visit Provider Nurse Practitioner Family
DX: Z77.090 Contact with and (suspected) exposure to asbestos (principal); R06.02 Shortness of breath
CPT/HCPCS: 71250

== ENCOUNTER → 2025-01-03 09:12 | Outpatient (BNV) | payer MEDICARE, MEDICAID, SELFPAY | PROVIDERS: Visit Provider Radiology Diagnostic Radiology | DX: Z77.090 Contact with and (suspected) exposure to asbestos (principal) | CPT/HCPCS: 71250 ==

== ENCOUNTER 2025-01-04 07:28 | Outpatient (AMB) | payer MEDICARE, SELFPAY ==
--- NOTE | 2025-01-04 08:05 | MHC.OFFVIS ---
Intake Visit Reasons: microscopic hematuria Intake Note: New patient presents today for initial visit for microscopic hematuria Urology Medication:Tadalafil Blood Thinner:none Antibiotic Allergies:none Allergies lisinopril Adverse Reaction (Unknown, Verified 01/04/25 10:06) Cough Medication List - Last Reconciled 01/04/25 by LUIS M Spring- albuterol sulfate 90 mcg/actuation 2 puffs inhalation Q4-6H PRN atorvastatin 10 mg PO DAILY [Blood pressure monitor As directed] blood sugar diagnostic (AppVaultuch Ultra Test strips) As directed check blood sugar once a day blood-glucose meter (Manpacks Verio Flex Start kit) As directed check blood sugar once chlorthalidone 25 mg PO DAILY empagliflozin-metformin 12.5-1,000 mg (Synjardy) 1 tab PO BID lancets (StartistTouch UltraSoft 2 Lancet) As directed check blood sugar once a day losartan 25 mg PO DAILY meloxicam 15 mg PO DAILY metoprolol succinate ER 25 mg PO DAILY tadalafil (Cialis) 20 mg PO DAILY PRN HPI Comments Details: Paras is a very pleasant 59-year-old male patient of Dr. Witt. He has a past medical history of diabetes, hypertension, and arthritis. He presents to the office today as a new patient for microscopic hematuria in the setting of previous nicotine dependence. In discussion with the patient today reports having followed up with his PCP for an annual visit at which time urinalysis noted microscopic hematuria and recommendations were made for urology referral for further assessment evaluation. When asked he does report a longstanding history of cocaine abuse, alcohol abuse, and nicotine dependence however quit approximately 21 years ago next month. He reports he had smoked cigarettes for 30 years approximately 1 pack per day. When asked he does report intermittent episodes of weak urinary stream he otherwise denies urinary urgency, urinary frequency, incontinence, nocturia, gross/visible hematuria, dysuria, foul smelling urine, flank pain, fever, and or chills. He is happy with his current voiding parameters. In office urinalysis results reviewed with the patient today 2+ microscopic hematuria. We discussed reasons for blood in the urine may include but are not limited to kidney stones, cancer in the urinary tract, BPH, kidney stone disease or inflammatory conditions of the urinary tract. He discusses a previous history of nephrolithiasis and following up with a urologist in [place]. However, nephrolithiasis never requiring surgical intervention. He also discusses having had a cystoscopy many years ago however is unsure as to where he had this completed. I have discussed workup to include cystoscopy evaluation as well as obtaining imaging for further assessment evaluation. He otherwise offers no other issues or concerns at this time. Discussion Notes The patient was seen today to evaluate microscopic hematuria. I discussed the potential causes of microscopic hematuria, including benign conditions like nephrolithiasis and more serious conditions such as bladder cancer, especially considering the patient?s history of smoking. Although the patient has abstained from smoking and substance use for over 21 years, his past history puts him at risk for malignancies. I recommended a CT scan. I also reassured the patient about the process and the sensations typically experienced during cystoscopy, emphasizing that the procedure involves a mild pressure sensation. The patient expressed understanding and consented to the planned diagnostic approach. Plan The patient will undergo a CT scan of the renal tract to investigate the cause of microscopic hematuria, considering his history of smoking and kidney stones. The patient has been informed of the risks and benefits of the proposed diagnostics, and he has provided consent for these interventions. [facility] Medical History Arthritis HTN (hypertension) Diabetes mellitus Smoking history Surgical History History of arthroplasty of right shoulder Family History Father No problems noted. Mother Arthritis Other Diabetes mellitus Social History Housing: Apartment Alcohol intake: never Patient Tobacco Use Status: Former Tobacco user e-Cigarette/Vaping Use: Never Used Second Hand Smoke Exposure: Yes service: No Current occupational status: retired Cognitive needs: No Hearing needs: No Vision needs: Yes (Glasses) Review of Systems Const All systems reviewed & are unremarkable except as noted in HPI and below Physical Exam Const General: cooperative, healthy appearing, comfortable, no acute distress, well developed, alert and awake Nutritional Appearance: average body habitus Orientation/consciousness: patient oriented x3 Limitations: no limitations HEENT Head: Yes normal to inspection, Yes normocephalic and Yes atraumatic Ears: hearing grossly normal bilaterally Eyes General: appearance normal, both eyes and all related structures Neck Neck: Yes normal visual inspection and Yes trachea midline Chest Chest palpation & inspection: normal inspection of the chest Resp Effort & Inspection: normal respiratory effort and able to speak in complete sentences Cardio Rate: regular rate GI Inspection: Yes normal to inspection General: Yes no CVA tenderness Back/Spine/Pelvis Back: no CVA tenderness Skin General skin exam: no rashes or lesions noted Neuro General: patient oriented x3 Extrem General: Yes normal to inspection Psych Appearance: grossly normal and well kempt Mental Status: mental status grossly normal Speech and movement: Normal speech and movement present and Clear speech present Affect: normal affect Attitude: cooperative Thought process: Normal thought process present Thought content: Normal thought content present Insight: Fair insight present (Psych) Judgement: Fair judgement present (Psych) Results AMB Urinalysis, Automated UA Leukoctes 0 Deb/uL Last Edit by Miracle Franco on 01/04/25 08:37 UA Nitrite Negative Last Edit by Miracle Franco on 01/04/25 08:37 UA Urobilinogen 0.2 mg/dL Last Edit by Miracle Franco on 01/04/25 08:37 UA Protein 15 mg/dL Last Edit by Miracle Franco on 01/04/25 08:37 UA pH 5.5 Last Edit by Miracle Franco on 01/04/25 08:37 UA Blood 80 [place]/uL Last Edit by Miracle Franco on 01/04/25 08:37 UA Specific [place] 1.025 Last Edit by Miracle Franco on 01/04/25 08:37 UA Ketone Negative Last Edit by Miracle Franco on 01/04/25 08:37 UA Bilirubin 0 mg/dL Last Edit by Miracle Franco on 01/04/25 08:37 UA Glucose 1000 mg/dL Last Edit by Miracle Franco on 01/04/25 08:37 Results Reviewed Results Reviewed: Laboratory Last Values Urine pH (Auto) 5.5 01/04/25 08:29 Specific [place] (Auto) 1.025 01/04/25 08:29 Urine Protein (Auto) 15 mg/dL 01/04/25 08:29 Glucose (UA)(Auto) 1000 mg/dL 01/04/25 08:29 Urine Ketones (Auto) Negative 01/04/25 08:29 Urine Blood (Auto) 80 [place]/uL 01/04/25 08:29 Urine Nitrite (Auto) Negative 01/04/25 08:29 Urine Bilirubin (Auto) 0 mg/dL 01/04/25 08:29 Urine Urobilinogen (Auto) 0.2 mg/dL 01/04/25 08:29 Leukocyte Esterase (Auto) 0 Deb/uL 01/04/25 08:29 Assessment & Plan Assessment & Plan (1) Personal history of tobacco use: Code(s): Z87.891 - Personal history of nicotine dependence Category: Social Hx (2) Microscopic hematuria: Code(s): R31.29 - Other microscopic hematuria Category: Medical (3) Weak urinary stream: Code(s): R39.12 - Poor urinary stream Category: Medical Plan In office urinalysis results reviewed with the patient today; will send for urine cytology. We discussed potential causes of microscopic hematuria as well as further workup in risks and benefits of these interventions. All questions were answered. Will continue with surveillance monitoring of weak urinary stream as patient reports this to be intermittent and feels he is managing this well independently. He reports be happy with current voiding parameters. Will obtain BUN, creatinine, and PSA for further assessment evaluation. Will obtain CT urogram for further assessment evaluation. Follow-up in office cystoscopy with imaging and labs to be completed prior; or sooner with any issues, concerns, and or questions. Orders: Orders AMB Urinalysis Automated Today Z13.9 - Encounter for screening, unspecified Urine Cytology Today R31.9 - Hematuria, unspecified Blood Urea Nitrogen Today R31.29 - Other microscopic hematuria, Z87.891 - Personal history of nicotine dependence Creatinine Today R31.29 - Other microscopic hematuria, Z87.891 - Personal history of nicotine dependence CT urogram Today R31.29 - Other microscopic hematuria, Z87.891 - Personal history of nicotine dependence Prostate Specific Antigen Today N52.9 - Male erectile dysfunction, unspecified Patient Instructions: The patient had an opportunity to ask questions regarding the treatment plan. All questions were answered. Physical exam, labs, and imaging were discussed and reviewed in detail. As well as risks, benefits, and discussion of treatment choices. No major barriers to understanding were identified. The patient expressed understanding and agreement with the above treatment plan. The patient was made aware they should contact our office by phone for worsening of their current condition, the appearance of new symptoms, or with any questions or concerns. Compliance is encouraged with any medications and follow up testing that is ordered. It is a privilege to be allowed the opportunity to participate in? your urological care.? Again, if you have any questions or concerns If you have any questions or concerns please do not hesitate to contact me. The office is [phone]. This note is constructed using voice recognition software. While every effort has been made to ensure accuracy dining car steward errors may have been included. Yours sincerely, LUIS M Spring-PRIYANKA Coding Level of Care Code New Pt Level 3 (99357) Diagnoses Personal history of tobacco use Z87.891 Microscopic hematuria R31.29 Weak urinary stream R39.12
== END 2025-01-04 08:35 | disposition home or self-care (01) ==
PROVIDERS: PCP Internal Medicine; Visit Provider Nurse Practitioner Family
DX: Z87.891 Personal history of nicotine dependence (principal); R31.29 Other microscopic hematuria; R39.12 Poor urinary stream; Z13.9 Encounter for screening, unspecified
CPT/HCPCS: 99203

== ENCOUNTER 2025-01-04 07:28 | Outpatient (REF) | payer MEDICARE, MEDICAID, SELFPAY | END 2025-01-04 07:29 | disposition home or self-care (01) | LOC: HO.LNP 07:28 | PROVIDERS: PCP Internal Medicine; Visit Provider Nurse Practitioner Family | DX: R31.29 Other microscopic hematuria (principal); R39.12 Poor urinary stream; Z87.891 Personal history of nicotine dependence | CPT/HCPCS: 81003; 99202 ==

== ENCOUNTER 2025-02-09 07:32 | Outpatient (REF) | payer MEDICARE, MEDICAID, SELFPAY ==
--- NOTE | 2025-02-09 | PFT_ITS ---
Indication: Asthma Spirometry [FEV1 to FVC 82%; FEV1 3.05 L; FVC 3.72 L. No significant response to bronchodilators noted.] Lung Volumes [Total lung capacity 79% predicted; expiratory reserve volume 112% predicted] Diffusion Capacity [DLCO 100% predicted] Comparisons [none] Interpretation [No obstructive ventilatory defects identified. No significant response to bronchodilators noted. The patient does have a restrictive ventilatory defect consistent with very mild restrictive lung disease. Diffusing capacity within normal limits. Clinical correlation warranted.] MTDD
[2025-02-09 08:21] VITALS: PULSE 81; O2SAT 98
== END 2025-02-09 07:33 | disposition home or self-care (01) ==
LOC: HO.RESP 07:32
PROVIDERS: PCP Internal Medicine; Visit Provider Nurse Practitioner Family
DX: R06.02 Shortness of breath (principal)
CPT/HCPCS: 94010; 94640; 94727; 94729

== ENCOUNTER → 2025-02-09 07:45 | Outpatient (BNV) | payer MEDICARE, MEDICAID, SELFPAY | PROVIDERS: PCP Internal Medicine; Visit Provider Hospitalist | DX: J45.909 Unspecified asthma, uncomplicated (principal) | CPT/HCPCS: 94060; 94727; 94729 ==

== ENCOUNTER 2025-02-14 07:48 | Outpatient (REF) | payer MEDICARE, MEDICAID, SELFPAY ==
[2025-02-14 08:14] LABS: Urine Cytology See Pathology rpt
[2025-02-14 08:43] LABS: Blood Urea Nitrogen 19 mg/dL (9-16); Estimated Glomerular Filt Rate > 60
[2025-02-14 09:07] LABS: Prostate Specific Antigen 2.73 ng/mL (<0.05-4.0)
== END 2025-02-14 07:49 | disposition home or self-care (01) ==
LOC: HO.LAB 07:48
PROVIDERS: Absent Provider Urology
DX: R31.29 Other microscopic hematuria (principal); Z87.891 Personal history of nicotine dependence; N52.9 Male erectile dysfunction, unspecified; R31.9 Hematuria, unspecified; Z12.5 Encounter for screening for malignant neoplasm of prostate
CPT/HCPCS: 36415; 82565; 84153; 84520; 88112

== ENCOUNTER 2025-02-17 09:51 | Outpatient (AMB) | payer MEDICARE, MEDICAID, SELFPAY ==
--- NOTE | 2025-02-17 10:11 | A.OFFVIS_ITS ---
Intake Visit Reasons: Cysto/ labs Intake Note: Patient presents today for cystoscopy Lot:[id number] Exp:09/18/27 Urology Medication:Tadalafil Blood Thinner:none Antibiotic Allergies:none Allergies lisinopril Adverse Reaction (Unknown, Verified 02/17/25 10:12) Cough HPI Comments Details: Paras is a pleasant male. He is a patient of Dr. Witt. He is seen for the following urologic conditions - microscopic hematuria - prior nephrolithiasis Here for check cystoscopy Cystoscopy bladder diverticulum small - start Flomax Follow-up nurse-practitioner three-month Microscopic hematuria Cytology NAD Imaging normal Cystoscopy normal PSA 03/08 2.7 Lower urinary tract symptoms Cystoscopy with findings of small bladder diverticulum Trial alpha-fazal PFSH Medical History Arthritis HTN (hypertension) Diabetes mellitus Smoking history Surgical History History of arthroplasty of right shoulder Family History Father No problems noted. Mother Arthritis Other Diabetes mellitus Social History Housing: Apartment Alcohol intake: never Patient Tobacco Use Status: Former Tobacco user e-Cigarette/Vaping Use: Never Used Second Hand Smoke Exposure: Yes service: No Current occupational status: retired Cognitive needs: No Hearing needs: No Vision needs: Yes (Glasses) Review of Systems Const Denies chills and Denies fever(s) Card Reports no additional complaints and Denies syncope Resp Denies cough GI Denies abdominal pain and Denies heartburn Reports as per HPI and Denies change in libido Neuro Denies syncope Psych Denies change in libido Endo Denies change in libido Physical Exam Const General: cooperative, healthy appearing, comfortable and no acute distress Orientation/consciousness: patient oriented x3 HEENT Face and sinus: Yes normal facial exam Mouth: moist mucous membranes Neck Neck: Yes normal visual inspection, Yes full ROM and Yes trachea midline Chest Chest palpation & inspection: normal inspection of the chest Resp Effort & Inspection: normal respiratory effort, able to speak in complete sentences and no respiratory distress GI Inspection: Yes normal to inspection Back/Spine/Pelvis Cervical Spine: normal cervical lordosis Thoracic/Lumbar Spine: thoracic and lumbar spine normal to inspection Skin General skin exam: no rashes or lesions noted Neuro General: patient oriented x3, gait normal, tone normal and moves all extremities Extrem General: Yes normal to inspection and Yes capillary refill normal Office Procedures Cystoscopy Consent Discussed risk and benefit or proposed procedure with the patient. Information consent for procedure given to the patient. Discussed technical aspects, risks, benefits and alternatives in full. Addressed all of the patient's questions and concerns regarding the procedure. The patient demonstrated knowledge and understanding. They wish to proceed with this procedure. Preparation The patient was prepped in the usual manner. A motor vehicle assembly supervisor was present and in the room. Genitalia was prepped with betadine solution in a sterile manner. Lidocaine Jelly 2% was placed into the urethra and 16Fr flexible Olympus cystoscope was inserted into the meatus after adequate lubrication. Procedure Cystoscopy performed using a disposable Urovue digital 16 Vietnamese cystoscope. Meatus uncircumcised Urethra anterior and posterior urethra normal Prostatic Urethra unremarkable Bladder examination with retroflexion of cystoscope Bladder Orifices normal shape and position Bladder Capacity Normal Trabeculations grade 1 Cellule Formation small Diverticulum Formation posterior wall small Mucosal Erythema None Bladder Tumor None [id number]-Ynavcyamal DISPOSABLE SCOPE URO-G FLEXIBLE SCOPE Procedure code (CPT) selection complete Office Meds lidocaine HCl 2 % mucosal jelly in applicator Performing Provider: Kwabena Martin MD Performing Location: [facility] Administered by: Ashleigh Pryor RN on 02/17/25 10:23 Dose Route Admin Location Dispensed Lot Number Expiration Date NDC Commissioning Manager 10 mL intra-urethral 10 mL nitrofurantoin monohydrate/macrocrystals 100 mg capsule Performing Provider: Kwabena Martin MD Performing Location: [facility] Administered by: Ashleigh Pryor RN on 02/17/25 10:23 Dose Route Admin Location Dispensed Lot Number Expiration Date NDC Commissioning Manager 100 mg PO 1 cap Results AMB Urinalysis, Automated UA Leukoctes 0 Deb/uL Last Edit by SMA Teodora on 02/17/25 13:06 UA Nitrite Last Edit by SMA Teodora on 02/17/25 13:06 UA Urobilinogen 3.5 mg/dL Last Edit by SMA Teodora on 02/17/25 13:06 UA Protein 15 mg/dL Last Edit by SMA Teodora on 02/17/25 13:06 UA pH 6.0 Last Edit by SMA Teodora on 02/17/25 13:06 UA Blood 25 [place]/uL Last Edit by Heriberto Dorantes [facility] on 02/17/25 13:06 UA Specific [place] 1.030 Last Edit by Heriberto Dorantes [facility] on 02/17/25 13:06 UA Ketone Last Edit by SMA Teodora on 02/17/25 13:06 UA Bilirubin 0 mg/dL Last Edit by Heriberto Dorantes [facility] on 02/17/25 13:06 UA Glucose 0 mg/dL Last Edit by Heriberto Dorantes [facility] on 02/17/25 13:06 Results Reviewed Results Reviewed: Laboratory Last Values Urine pH (Auto) 6.0 02/17/25 12:07 Specific [place] (Auto) 1.030 02/17/25 12:07 Urine Protein (Auto) 15 mg/dL 02/17/25 12:07 Glucose (UA)(Auto) 0 mg/dL 02/17/25 12:07 Urine Blood (Auto) 25 [place]/uL 02/17/25 12:07 Urine Bilirubin (Auto) 0 mg/dL 02/17/25 12:07 Urine Urobilinogen (Auto) 3.5 mg/dL 02/17/25 12:07 Leukocyte Esterase (Auto) 0 Deb/uL 02/17/25 12:07 Assessment & Plan Assessment & Plan (1) Weak urinary stream: Code(s): R39.12 - Poor urinary stream Category: Medical (2) Microscopic hematuria: Code(s): R31.29 - Other microscopic hematuria Category: Medical Plan alpha fazal Orders: Orders AMB Urinalysis Automated Today R31.29 - Other microscopic hematuria, R39.12 - Poor urinary stream AMB Cystoscopy Today R31.29 - Other microscopic hematuria Medications: New alfuzosin ER 10 mg PO DAILY 30 tabs 2RF 30 days R39.12 - Poor urinary stream Patient Instructions: This note is constructed using voice recognition software. While every effort has been made to ensure accuracy hand stone polisher errors may have been included. Imaging studies, laboratory and physical exam results were discussed and reviewed in detail. No major barriers to patient understanding were identified. An opportunity to ask questions regarding the treatment plan was provided. All questions were answered. The patient expressed understanding and agreement with the above treatment plan. The patient is aware they should contact our office by phone for worsening of their current condition or the appearance of new urologic symptoms. Compliance is encouraged with any medications and followup testing that is ordered. It is a privilege to participate in the urologic care of your patient. If you have any questions or concerns regarding treatment for the above conditions, or other urologic issues, please do not hesitate to contact me. The office telephone contact is [phone]. Sincerely, Dr Kwabena Martin MD, [facility] - Urology Compassionate Specialist Care for the Genitourinary System Coding Level of Care Code Est Pt Level 3 (30159) Diagnoses Weak urinary stream R39.12 Microscopic hematuria R31.29 CPT Codes Cystoscopy - CPT: 11005-[id number] ([id number])
== END 2025-02-17 11:08 | disposition home or self-care (01) ==
PROVIDERS: Visit Provider Urology
DX: R39.12 Poor urinary stream (principal); R31.29 Other microscopic hematuria
CPT/HCPCS: 52000

== ENCOUNTER → 2025-02-17 09:51 | Outpatient (BNVA) | payer MEDICARE, MEDICAID, SELFPAY | PROVIDERS: Visit Provider Urology | DX: R39.12 Poor urinary stream (principal); R31.29 Other microscopic hematuria | CPT/HCPCS: 52000; 81003 ==

== ENCOUNTER 2025-02-20 14:04 | Outpatient (REF) | payer MEDICARE, MEDICAID, SELFPAY ==
--- NOTE | ~2025-02-20 | CT_ITS ---
EXAMINATION: CT ABDOMEN AND PELVIS WITHOUT AND WITH CONTRAST CLINICAL INFORMATION: Microscopic hematuria COMPARISON: None available. TECHNIQUE: Noncontrast CT of the abdomen and pelvis is performed followed by split bolus contrast-enhanced images using 85 mL Omnipaque 350 contrast. Postcontrast imaging is performed during the combined nephrogram and excretion phase. Sagittal and coronal reformatted images were obtained on the technologist's workstation for both the precontrast and postcontrast phases. This CT examination was performed using dose optimization techniques as appropriate, variously including the following: *Automated exposure control *Adjustment of mA and/or kV according to patient size (this includes techniques or standardized protocols for targeted exams where dose is matched to indication/reason for exam; i.e. extremities or head) *Use of iterative reconstruction technique DLP: 576 mGY*cm FINDINGS: LUNG BASES: The visualized lung bases are unremarkable. LIVER, GALLBLADDER, AND BILIARY TREE: The liver is normal in size, shape, and attenuation. No focal hepatic lesion or biliary ductal dilatation is present. The gallbladder is unremarkable with no evidence of radiopaque gallstones, gallbladder wall thickening, or obvious pericholecystic inflammatory changes. PANCREAS: Unremarkable. SPLEEN: Unremarkable. ADRENAL GLANDS: Unremarkable. KIDNEYS AND URETERS: The kidneys are normal in size, shape, and attenuation. No hydronephrosis, or hydroureter. No perinephric stranding. Unenhanced kidney demonstrates a 2 x 3 mm stone in the lower pole. After contrast, there is symmetric concentration and excretion of contrast into the right urinary tract and bladder. There are 2 hypoattenuating lesions in the left kidney consistent with benign simple renal cysts. BLADDER: Unremarkable. GASTROINTESTINAL TRACT: The small and large bowel are unremarkable. The appendix is unremarkable. ABDOMINAL WALL: No significant hernia is appreciated. LYMPH NODES: Normal. VASCULAR: Multifocal atherosclerotic calcifications are evident aorta and iliac arteries. PELVIC VISCERA: Unremarkable. OSSEUS STRUCTURES: The imaged portions of the thoracic and lumbar spine demonstrate marginal osteophytes and bulging discs at L2-3 and L3-4. There is ankylosis of the upper SI joints. There are also mild degenerative changes of the hips. CT/CT urogram IMPRESSION: Unremarkable CT urogram without evidence of a solid mass, or asymmetry. 2x3 mm nonobstructing stone is present in the lower pole left kidney. 2 benign simple renal cysts are present in the left kidney. No bladder abnormality is seen. There is ankylosis of the upper SI joints bilaterally question of underlying ankylosing spondylitis. Electronically signed by: Josh Ruggiero MD 02/20/2025 04:15 PM EDT
[2025-02-20] MEDS: iohexoL 350 MG/ML 100 ML INFUS..BTL 85 ML IV (15:17)
== END 2025-02-20 14:05 | disposition home or self-care (01) ==
LOC: HO.CT 14:04
PROVIDERS: PCP Internal Medicine; Visit Provider Nurse Practitioner Family
DX: R31.29 Other microscopic hematuria (principal); Z87.891 Personal history of nicotine dependence
CPT/HCPCS: 74178; Q9967

== ENCOUNTER → 2025-02-20 14:05 | Outpatient (BNV) | payer MEDICARE, MEDICAID, SELFPAY | PROVIDERS: PCP Internal Medicine; Visit Provider Radiology Diagnostic Radiology | DX: N20.0 Calculus of kidney (principal) | CPT/HCPCS: 74178 ==

== ENCOUNTER 2025-05-22 08:07 | Outpatient (AMB) | payer MEDICARE, SELFPAY ==
--- NOTE | 2025-05-22 08:07 | MHC.OFFVIS ---
Intake Visit Reasons: 3m/CT Intake Note: Patient is present for 3M/CT Urology Medication:TADALAFIL Antibiotic Allergy:NONE Blood Thinner:NONE Coding Support Specialist Required: No Allergies lisinopril Adverse Reaction (Unknown, Verified 05/22/25 08:38) Cough Medication List - Last Reconciled 05/22/25 by LUIS M Spring-PRIYANKA albuterol sulfate 90 mcg/actuation 2 puffs inhalation Q4-6H PRN alfuzosin ER 10 mg PO DAILY 90 days atorvastatin 10 mg PO DAILY [Blood pressure monitor As directed] blood sugar diagnostic ([employer] Ultra Test strips) As directed check blood sugar once a day blood-glucose meter ([employer] Verio Flex Start kit) As directed check blood sugar once chlorthalidone 25 mg PO DAILY lancets ([employer] UltraSoft 2 Lancet) As directed check blood sugar once a day losartan 25 mg PO DAILY meloxicam 15 mg PO DAILY metoprolol succinate ER 25 mg PO DAILY tadalafil (Cialis) 20 mg PO DAILY PRN HPI Comments Details: Paras is a very pleasant 59-year-old male patient of Dr. Witt.He has a past medical history of diabetes, hypertension, and arthritis. He is being followed up on today via telehealth for his history of microscopic hematuria in the setting of previous nicotine dependence and nephrolithiasis. Of note, during last office visit approximately 3 months ago patient underwent an office cystoscopy with Dr. Martin 03/08 that noted small bladder diverticulum and no bladder tumors at which time he was started on alfuzosin. In discussion with the patient today he reports to be doing and feeling well. He reports no bothersome urinary issues or concerns. He reports noting an improvement in urinary stream with 10 mg of alfuzosin daily. However he is requesting refill as he has recently ran out. Previous workup has included a CT urogram 03/08 noting the kidneys are normal in size, shape, and attenuation. No hydronephrosis or hydroureter noted bilaterally. Left 3 mm nonobstructing lower pole calculus. There are 2 hypoattenuating lesions in the left kidney consistent with benign simple renal cysts. The bladder is unremarkable per radiology report. Urine cytology 03/08 Negative for high-grade urothelial carcinoma. PSA 03/08: 2.7. He does report a longstanding history of cocaine abuse, alcohol abuse, and nicotine dependence however quit approximately 21 years. He reports he had smoked cigarettes for 30 years approximately 1 pack per day. He discusses his longstanding history of nephrolithiasis and following up with a previous urologist in [place]. When asked he denies urinary urgency, urinary frequency, incontinence, nocturia, hematuria, dysuria, foul smelling urine, changes to urinary stream, flank pain, fever, and or chills. He is happy with his current voiding parameters. He otherwise offers no other issues or concerns at this time. We discussed importance of continuing with surveillance monitoring. All questions were answered. [facility] Medical History Arthritis HTN (hypertension) Diabetes mellitus Smoking history Surgical History History of arthroplasty of right shoulder Family History Father No problems noted. Mother Arthritis Other Diabetes mellitus Social History Housing: Apartment Alcohol intake: never Patient Tobacco Use Status: Former Tobacco user e-Cigarette/Vaping Use: Never Used Second Hand Smoke Exposure: Yes service: No Current occupational status: retired Cognitive needs: No Hearing needs: No Vision needs: Yes (Glasses) Review of Systems Const All systems reviewed & are unremarkable except as noted in HPI and below Physical Exam Const General: cooperative Orientation/consciousness: patient oriented x3 Resp Effort & Inspection: able to speak in complete sentences Neuro General: patient oriented x3 Psych Speech and movement: Clear speech present Attitude: cooperative Thought process: Normal thought process present Thought content: Normal thought content present Insight: Fair insight present (Psych) Judgement: Fair judgement present (Psych) Telehealth Telehealth Telehealth Platform: Telephone Location of provider rendering services: practice address Location of patient: address on file Patient Identification confirmed using: Name, : Yes Telehealth method: voice only Patient verbally consented to treatment: Yes Patient verbally consented to billing insurance company: Yes Patient informed of any privacy concerns related to visit: Yes Minutes spent on Phone/Video with Pt.: 15 Results Reviewed Results Reviewed: Date of Service: 02/20/25 Procedure(s): CT urogram FINDINGS: LUNG BASES: The visualized lung bases are unremarkable. LIVER, GALLBLADDER, AND BILIARY TREE: The liver is normal in size, shape, and attenuation. No focal hepatic lesion or biliary ductal dilatation is present. The gallbladder is unremarkable with no evidence of radiopaque gallstones, gallbladder wall thickening, or obvious pericholecystic inflammatory changes. PANCREAS: Unremarkable. SPLEEN: Unremarkable. ADRENAL GLANDS: Unremarkable. KIDNEYS AND URETERS: The kidneys are normal in size, shape, and attenuation. No hydronephrosis, or hydroureter. No perinephric stranding. Unenhanced kidney demonstrates a 2 x 3 mm stone in the lower pole. After contrast, there is symmetric concentration and excretion of contrast into the right urinary tract and bladder. There are 2 hypoattenuating lesions in the left kidney consistent with benign simple renal cysts. BLADDER: Unremarkable. GASTROINTESTINAL TRACT: The small and large bowel are unremarkable. The appendix is unremarkable. ABDOMINAL WALL: No significant hernia is appreciated. LYMPH NODES: Normal. VASCULAR: Multifocal atherosclerotic calcifications are evident aorta and iliac arteries. PELVIC VISCERA: Unremarkable. OSSEUS STRUCTURES: The imaged portions of the thoracic and lumbar spine demonstrate marginal osteophytes and bulging discs at L2-3 and L3-4. There is ankylosis of the upper SI joints. There are also mild degenerative changes of the hips. IMPRESSION: Unremarkable CT urogram without evidence of a solid mass, or asymmetry. 2x3 mm nonobstructing stone is present in the lower pole left kidney. 2 benign simple renal cysts are present in the left kidney. No bladder abnormality is seen. There is ankylosis of the upper SI joints bilaterally question of underlying ankylosing spondylitis. Assessment & Plan Assessment & Plan (1) Microscopic hematuria: Code(s): R31.29 - Other microscopic hematuria Category: Medical (2) Erectile dysfunction: Code(s): N52.9 - Male erectile dysfunction, unspecified Category: Medical Qualifiers: Erectile dysfunction type: unspecified Qualified Code(s): N52.9 - Male erectile dysfunction, unspecified (3) Weak urinary stream: Code(s): R39.12 - Poor urinary stream Category: Medical (4) Bladder diverticulum: Code(s): N32.3 - Diverticulum of bladder Category: Medical (5) Nephrolithiasis: Code(s): N20.0 - Calculus of kidney Category: Medical Plan Recent CT results reviewed with the patient today; as noted above. Recent cytology results reviewed with the patient today; as noted above. Recent PSA results reviewed with the patient today; as noted above. Continue alfuzosin as discussed and prescribed. He currently denies any bothersome urinary issues or concerns. He reports be happy with current voiding parameters. Will continue with surveillance monitoring. We discussed the importance of adequate hydration relation to nephrolithiasis as well as overall health and well-being. Will obtain renal ultrasound and PSA in 6 months Follow-up in 6 months with labs and imaging; or sooner with any issues, concerns, and or questions. Orders: Orders US renal BI 6 Months N20.0 - Calculus of kidney Prostate Specific Antigen 6 Months N40.0 - Benign prostatic hyperplasia without lower urinary tract symptoms Medications: Changed From alfuzosin ER 10 mg PO DAILY 30 tabs 2RF 30 days R39.12 - Poor urinary stream To alfuzosin ER 10 mg PO DAILY 90 tabs 3RF 90 days R39.12 - Poor urinary stream Patient Instructions: The patient had an opportunity to ask questions regarding the treatment plan. All questions were answered. Physical exam, labs, and imaging were discussed and reviewed in detail. As well as risks, benefits, and discussion of treatment choices. No major barriers to understanding were identified. The patient expressed understanding and agreement with the above treatment plan. The patient was made aware they should contact our office by phone for worsening of their current condition, the appearance of new symptoms, or with any questions or concerns. Compliance is encouraged with any medications and follow up testing that is ordered. It is a privilege to be allowed the opportunity to participate in? your urological care.? Again, if you have any questions or concerns If you have any questions or concerns please do not hesitate to contact me. The office is [phone]. This note is constructed using voice recognition software. While every effort has been made to ensure accuracy senior engineering associate errors may have been included. Yours sincerely, HILARIA Spring Coding Level of Care Code Tele Est Pt Level 3 (42929) Diagnoses Microscopic hematuria R31.29 Erectile dysfunction, unspecified erectile dysfunction type N52.9 Erectile dysfunction type: unspecified Weak urinary stream R39.12 Bladder diverticulum N32.3 Nephrolithiasis N20.0
== END 2025-05-22 09:07 | disposition home or self-care (01) ==
LOC: HO.HUSH 08:07
PROVIDERS: Visit Provider Nurse Practitioner Family
DX: R31.29 Other microscopic hematuria (principal); N52.9 Male erectile dysfunction, unspecified; R39.12 Poor urinary stream; N32.3 Diverticulum of bladder; N20.0 Calculus of kidney
CPT/HCPCS: 99213